=== PATIENT | female | born 1980 | race Two or more races ===

== ENCOUNTER 2023-07-19 20:06 | Emergency (ER) | payer OTHER ==
[~2023-07-19] VITALS: Ht 157.5 cm; Wt 61.2 kg
[2023-07-19] MEDS ORDERED: FAMOTIDINE/PF 20 MG in 0.9 % SODIUM CHLORIDE 8 ML IV PUSH STA (20:55)
[2023-07-19] MEDS ORDERED: 0.9 % SODIUM CHLORIDE 1,000 ML IV SCH (21:00)
[2023-07-19] MEDS ORDERED: KETOROLAC TROMETHAMINE 30 MG VIAL IV ONE (21:00)
[2023-07-19] MEDS ORDERED: ONDANSETRON HCL 2 MG/ML VIAL IV ONE (21:00)
[2023-07-19 21:34] LABS: HEMOGLOBIN 12.8 g/dL (12.0-15.00); MEAN CELL VOLUME 83.7 fL (80.00-100.00); MEAN CORPUSCULAR HEMOGLOBIN 27.5 pg (27.00-32.0); MEAN CORPUSCULAR HGB CONC 32.9 g/dl (32.0-36.0); PLATELET COUNT 372 K/uL (150-450); RED BLOOD COUNT 4.66 M/uL (4.00-6.00); RED CELL DISTRIBUTION WIDTH 13.6 % (11.5-14.5)
[2023-07-19 22:05] LABS: ALBUMIN 3.9 gm/dL (3.4-5.0); BILIRUBIN TOTAL 0.41 mg/dL (0.3-1.2); BILIRUBIN,CONJUGATED 0.17 mg/dL (0.0-0.2); BILIRUBIN,UNCONJUGATED 0.24 mg/dL (0.0-0.6); CALCIUM 9.1 mg/dL (8.5-10.1); CREATININE SERUM 0.7 mg/dL (0.55-1.02); GFR 90.49; GLOBULINA 4.2 G/DL (2.4-3.5); POTASSIUM 3.66 mEq/L (3.5-5.1); TOTAL PROTEIN 8.1 gm/dL (6.4-8.2)
[2023-07-19] MEDS ORDERED: PEPCID AC20 MG PO (23:05)
[2023-07-19] MEDS ORDERED: ONDANSETRON ODT8 MG PO (23:05)
[2023-07-19] MEDS ORDERED: LEVSIN/SL0.125 MG SL (23:05)
== END 2023-07-19 23:37 | disposition home or self-care (01) ==
LOC: ER 20:06
PROVIDERS: General Practice
DX: K80.20 Calculus of gallbladder without cholecystitis without obstruction (principal)

== ENCOUNTER 2023-07-25 00:12 | Inpatient (IN) | payer OTHER ==
[~2023-07-25] VITALS: Ht 157.5 cm; Wt 59.0 kg
[~2023-07-25 00:12] MED LIST: LEVSIN/SL0.125 MG SL; ONDANSETRON ODT8 MG PO; PEPCID AC20 MG PO
--- NOTE | 2023-07-25 00:38 | NUR ---
PTE ALERAT Y ORRIENTADA X3 REFIERE VENIR A JULIANNA DEBIDO A QUE TIENE DOLOR ABDOMINAL DEBIDO A PIEDRAS QUE LE ENCONTRARON EN LA VESICULA AQUI EN [facility]. SE SAIRA S/V Y SE COLOCA EN JULIANNA.
[2023-07-25] MEDS ORDERED: MEPERIDINE HCL/PF 25 MG/ML VIAL IM STA (01:17)
[2023-07-25] MEDS ORDERED: PROMETHAZINE HCL 50 MG/ML AMPUL IM STA (01:17)
[2023-07-25] MEDS ORDERED: FAMOTIDINE/PF 20 MG/2 ML VIAL IV PUSH STA (01:17)
[2023-07-25] MEDS ORDERED: RINGERS SOLUTION,LACTATED 1,000 ML IV ONE (01:30)
[2023-07-25 01:34] LABS: MEAN CELL VOLUME 84.3 fL (80.00-100.00); MEAN CORPUSCULAR HEMOGLOBIN 28.8 pg (27.00-32.0); MEAN CORPUSCULAR HGB CONC 34.2 g/dl (32.0-36.0); PLATELET COUNT 390 K/uL (150-450); RED CELL DISTRIBUTION WIDTH 13.5 % (11.5-14.5)
--- NOTE | 2023-07-25 01:36 | NUR ---
SE ORIENTA PTE SOBRE TX A SEGUIR, LA MISMA REFIERE ENTENDER. SE SAIRA MUESTRAS DE LAB, SE CANALIZA Y SE ADMINISTRA MED MATT ORDEN MEDICA BAJO MEDIDAS ASEPTICAS
[2023-07-25 01:42] LABS: PH,URINE 6.5 (5.0-8.0); URINE APPEARANCE Clear; URINE BILIRRUBIN Negative (NEGATIVE); URINE COLOR Yellow; URINE GLUCOSE Negative (NEGATIVE); URINE LEUKOCYTE Negative; URINE NITRATE Negative; URINE PROTEIN Negative (NEGATIVE)
[2023-07-25 01:46] LABS: URINE BACTERIA 594.6 uL (0.0-1933); URINE EPITHELIAL CELLS 6.8 uL (0.0-38.8); URINE RBC 7.9 uL (0.0-20.8); URINE WBC 6.9 uL (0.0-23.2)
[2023-07-25 01:59] LABS: INR 1.01; PARTIAL THROMBOPLASTIN TIME 25.9 SECONDS (22.0-34.0); PROTHROMBIN TIME 10.6 SECONDS (9.0-11.5)
[2023-07-25 02:00] LABS: URINE BLOOD Traces
[2023-07-25 02:00] LABS: BILIRUBIN TOTAL 0.78 mg/dL (0.3-1.2); BILIRUBIN,CONJUGATED 0.44 mg/dL (0.0-0.2); BILIRUBIN,UNCONJUGATED 0.34 mg/dL (0.0-0.6); CALCIUM 9.6 mg/dL (8.5-10.1); CREATININE SERUM 0.67 mg/dL (0.55-1.02); GFR 95.18; GLOBULINA 3.9 G/DL (2.4-3.5); POTASSIUM 4.3 mEq/L (3.5-5.1); TOTAL PROTEIN 7.9 gm/dL (6.4-8.2)
--- NOTE | 2023-07-25 06:20 | NUR ---
SE REALIZA EKG A PTE Y SE SAIRA MEDIDAS DE MEDIAS ANTIEMBOLICAS Y S EBRINDA COPIA DE DOCUMENTO A PTE
[2023-07-25] MEDS ORDERED: ONDANSETRON HCL 2 MG/ML VIAL IV PRN (09:45)
[2023-07-25] MEDS ORDERED: MEPERIDINE HCL/PF 25 MG/ML VIAL IV PRN (09:45)
[2023-07-25] MEDS ORDERED: 0.9 % SODIUM CHLORIDE 1,000 ML IV SCH (10:00)
[2023-07-25] MEDS ORDERED: PIPERACILLIN/TAZOBACTAM SODIUM 3.375 GM VIAL IV SCH (12:00)
[2023-07-25 23:49] LABS: INR 1.04; PROTHROMBIN TIME 10.9 SECONDS (9.0-11.5)
[2023-07-26] MEDS ORDERED: KETOROLAC TROMETHAMINE 30 MG VIAL IU PRN (09:15)
[2023-07-26] MEDS ORDERED: BUPIVACAINE HCL 30 ML VIAL IJ ONE (10:30)
[2023-07-26] MEDS ORDERED: ISOPROPYL ALCOHOL 30 ML OUNCE TOP ONE (10:30)
[2023-07-26] MEDS ORDERED: LIDOCAINE HCL 1%/Epi 20ML VIAL IJ ONE (10:30)
[2023-07-26] MEDS ORDERED: MORPHINE SULFATE 4 MG/ML VIAL IV ONE (12:50)
[2023-07-26] MEDS ORDERED: 0.9 % SODIUM CHLORIDE 1,000 ML IV SCH (14:45)
[2023-07-27 06:29] LABS: HEMATOCRIT 35.6 % (36.0-45.00); HEMOGLOBIN 12.4 g/dL (12.0-15.00); MEAN CELL VOLUME 84.8 fL (80.00-100.00); MEAN CORPUSCULAR HEMOGLOBIN 29.4 pg (27.00-32.0); MEAN CORPUSCULAR HGB CONC 34.7 g/dl (32.0-36.0); PLATELET COUNT 336 K/uL (150-450); RED CELL DISTRIBUTION WIDTH 13.5 % (11.5-14.5)
[2023-07-27 08:27] LABS: ALBUMIN 3.3 gm/dL (3.4-5.0); BILIRUBIN TOTAL 0.38 mg/dL (0.3-1.2); CALCIUM 9.1 mg/dL (8.5-10.1); CREATININE SERUM 0.77 mg/dL (0.55-1.02); GFR 81.06; GLOBULINA 3.1 G/DL (2.4-3.5); POTASSIUM 4.75 mEq/L (3.5-5.1); TOTAL PROTEIN 6.4 gm/dL (6.4-8.2)
== END 2023-07-27 13:12 | disposition home or self-care (01) | DRG 419 ==
LOC: ER 00:12 → MEDI 10:13 → SEC-K 10:13 → MEDI 15:08
PROVIDERS: General Practice; Surgery; ADMIT Internal Medicine; ATTEND Internal Medicine
PROC: BW40ZZZ Ultrasonography of Abdomen (ICD-10-PCS; 2023-07-25)
PROC: 0WQF4ZZ Repair Abdominal Wall, Percutaneous Endoscopic Approach (ICD-10-PCS; 2023-07-26)
PROC: 0FT44ZZ Resection of Gallbladder, Percutaneous Endoscopic Approach (ICD-10-PCS; principal; 2023-07-26 07:00)
DX: K80.10 Calculus of gallbladder with chronic cholecystitis without obstruction (principal); K43.9 Ventral hernia without obstruction or gangrene

== ENCOUNTER 2024-05-26 13:01 | Emergency (ER) | payer OTHER ==
[~2024-05-26] VITALS: Ht 157.5 cm; Wt 61.2 kg
[2024-05-26] MEDS ORDERED: ONDANSETRON HCL 2 MG/ML VIAL IV STA (16:09)
[2024-05-26] MEDS ORDERED: LOPERAMIDE HCL 2 MG CAPSULE PO STA (16:10)
[2024-05-26] MEDS ORDERED: SODIUM CHLORIDE 0.45 % 1,000 ML IV STA (16:10)
[2024-05-26] MEDS ORDERED: ONDANSETRON HCL 2 MG/ML VIAL ONE (16:20)
[2024-05-26] MEDS ORDERED: LOPERAMIDE HCL 2 MG CAPSULE PO ONE (16:20)
[2024-05-26 16:38] LABS: HEMATOCRIT 44.2 % (36.0-45.00); HEMOGLOBIN 14.5 g/dL (12.0-15.00); MEAN CELL VOLUME 83.2 fL (80.00-100.00); MEAN CORPUSCULAR HEMOGLOBIN 27.3 pg (27.00-32.0); MEAN CORPUSCULAR HGB CONC 32.8 g/dl (32.0-36.0); PLATELET COUNT 366 K/uL (150-450); RED BLOOD COUNT 5.31 M/uL (4.00-6.00); RED CELL DISTRIBUTION WIDTH 14.4 % (11.5-14.5)
[2024-05-26 16:59] LABS: CALCIUM 8.9 mg/dL (8.5-10.1); CREATININE SERUM 1.03 mg/dL (0.55-1.02); GFR 57.95; POTASSIUM 3.89 mEq/L (3.5-5.1)
[2024-05-26 17:32] LABS: PH,URINE 5.5 (5.0-8.0); URINE APPEARANCE Cloudy; URINE BILIRRUBIN Small (NEGATIVE); URINE BLOOD Negative; URINE COLOR Dark Yellow; URINE GLUCOSE Negative (NEGATIVE); URINE KETONE Trace (NEGATIVE); URINE LEUKOCYTE Trace; URINE NITRATE Negative
[2024-05-26 17:37] LABS: URINE BACTERIA 1220.3 uL (0.0-1933); URINE EPITHELIAL CELLS 171.6 uL (0.0-38.8)
[2024-05-26 18:02] LABS: URINE CAST > 21.83 uL (0.0-1.40); URINE PROTEIN 100 (NEGATIVE)
== END 2024-05-26 21:03 | disposition home or self-care (01) ==
LOC: ER 13:03
PROVIDERS: Emergency Medicine
DX: K52.89 Other specified noninfective gastroenteritis and colitis (principal); E86.0 Dehydration; J10.1 Influenza due to other identified influenza virus with other respiratory manifestations; Z20.822 Contact with and (suspected) exposure to COVID-19

== ENCOUNTER 2024-07-21 21:57 | Emergency (ER) | payer OTHER ==
[~2024-07-21] VITALS: Ht 152.4 cm; Wt 63.5 kg
[2024-07-21] MEDS ORDERED: DIPHENHYDRAMINE HCL 50 MG/ML VIAL 1ML IV ONE (22:15)
[2024-07-21] MEDS ORDERED: FAMOtidine 10 MG/ML (4ML VIAL) IV ONE (22:15)
[2024-07-21] MEDS ORDERED: EPINEPHRINE HCL/PF 1 MG/ML AMPUL SUBCUTANEO ONE ×2 (22:15→22:30)
[2024-07-21] MEDS ORDERED: METHYLPREDNISOLONE SOD SUCC 40 MG VIAL IV ONE (22:15)
[2024-07-21] MEDS ORDERED: EPINEPHRINE HCL/PF 1 MG/ML AMPUL ONE (22:19)
[2024-07-21] MEDS ORDERED: DIPHENHYDRAMINE HCL 50 MG/ML VIAL 1ML ONE (22:19)
[2024-07-21] MEDS ORDERED: METHYLPREDNISOLONE SOD SUCC 40 MG VIAL ONE (22:19)
[2024-07-21] MEDS ORDERED: FAMOTIDINE/PF 20 MG/2 ML VIAL ONE (22:20)
[2024-07-21] MEDS ORDERED: PEPCID AC20 MG PO (23:31)
[2024-07-21] MEDS ORDERED: MEDROLPACK PO (23:31)
[2024-07-21] MEDS ORDERED: BENADRYL ALLERG25 MG PO (23:31)
== END 2024-07-22 | disposition home or self-care (01) ==
LOC: ER
DX: R21 Rash and other nonspecific skin eruption (principal); T78.40XA Allergy, unspecified, initial encounter